=== PATIENT | male | born 1960 | race Two or more races ===

== ENCOUNTER → 2024-05-09 | Outpatient (CLI) | payer MEDICAID, SELFPAY ==
--- NOTE | 2024-05-09 09:24 | XR_ITS ---
Examination: PA lateral chest 2 views TECHNIQUE: Upright PA lateral chest 2 views Exam date and time: May 09, 2024 1017 hours INDICATIONS: Diagnosis coccidiomycosis coughing for months COMPARISON: April 09, 2023 FINDINGS: Normal heart size Lungs are clear. Mild hyperexpansion Moderate thoracic spondylosis IMPRESSION: Mild hyperexpansion No pneumonia identified
== END | disposition home or self-care (01) ==
PROVIDERS: PCP Physician Assistant; Referring Provider Internal Medicine Rheumatology; Visit Provider Physician Assistant
DX: J98.4 Other disorders of lung (principal)
CPT/HCPCS: 71046

== ENCOUNTER 2024-11-22 09:50 | Day surgery (SDC) | payer MEDICARE, MEDICAID, SELFPAY ==
--- NOTE | 2024-11-21 07:00 | EKG_ITS ---
[facility] Test Date: 2024-11-21 Pat Name: PHILIP PALUMBO Department: Room: - Gender: Male Vocal Artist: [facility] : 1960 Requested By: Jeanne Nunes Order Number: [id number] Reading MD: Jeanne Nunes Measurements Intervals [place] Rate: 71 P: 41 LA: 156 QRS: -7 QRSD: 105 T: 49 QT: 354 QTc: 385 Interpretive Statements SINUS RHYTHM No previous ECG available for comparison /store/S0/[id number]/ecg/[id number].pdf
[2024-11-21 07:35] VITALS: BMI 23.8
[2024-11-21 07:44] VITALS: BMI 23.8
[2024-11-21 10:55] LABS: Basophils # (Auto) 0.1 Thou/mm3 (0.0-0.2); Basophils % (Auto) 1 % (0-2.5); Eosinophils # (Auto) 0.2 Thou/mm3 (0.0-0.5); Eosinophils % (Auto) 4 % (0-10); Hematocrit 44.9 % (41.0-53.0); Hemoglobin 15.4 g/dL (13.5-16.0); Immature Granulocytes % (Auto) 1 % (0-0); Immature Granulocytes Auto 0.03 Thou/mm3 (0.00-0.00); Lymphocytes # (Auto) 2.8 Thou/mm3 (1.0-4.8); Lymphocytes % (Auto) 44 % (10-50); Mean Corpuscular HGB Conc 34.3 g/dl (31.0-37.0); Mean Corpuscular Hemoglobin 30.7 pg (25.0-35.0); Mean Corpuscular Volume 90 fL (80-100); Monocytes # (Auto) 0.7 Thou/mm3 (0.0-0.8); Monocytes % (Auto) 12 % (0-12); Neutrophils # (Auto) 2.4 Thou/mm3 (1.8-7.7); Neutrophils % (Auto) 39 % (37-80); Nucleated Red Blood Cell % 0 /100 WBC (0); Platelet Count 265 Thou/mm3 (140-440); RDW Standard Deviation 42.8 fL (35.1-43.9); Red Blood Count 5.01 Miln/mm3 (4.50-5.90); White Blood Count 6.3 Thou/mm3 (3.8-10.6)
[2024-11-21 11:06] LABS: Alanine Aminotransferase 17 U/L (10-49); Albumin, Serum 4.3 gm/dL (3.4-4.8); Albumin/Globulin Ratio 1.5 (1.2-2.2); Alkaline Phosphatase 84 U/L (46-116); Anion Gap 8 (7-16); Aspartate Amino Transferase 21 U/L (0-34); BUN/Creatinine Ratio 16 Ratio (12-20); Bilirubin,Total 0.5 mg/dL (0.3-1.2); Blood Urea Nitrogen 14 mg/dL (9-23); Calcium 9.2 mg/dL (8.3-10.6); Calcium (Corrected) 9.2 mg/dL (8.5-10.1); Carbon Dioxide 27.1 mMol/L (20.0-31.0); Chloride 106 mMol/L (98-107); Creatinine (Component) 0.9 mg/dL (0.6-1.3); Estimated Creatinine Clearance 73.8 mL/min (>60); Globulin 2.8 gm/dL (2.3-3.5); Glucose 110 mg/dL (74-106); Osmolality,Calculated 282 (275-295); Potassium 4.1 mMol/L (3.4-5.1); Sodium 141 mMol/L (136-145); Total Protein 7.1 gm/dL (5.7-8.2); eGFR > 60 See Note
--- NOTE | 2024-11-21 14:20 | SUR.PREOP ---
Pt notified to come in tomorrow at 1130.
[2024-11-22] VITALS (12 sets, daily range): BP systolic 113–153; BP diastolic 70–82; PULSE 54–77; RESP 12–20; TEMP 36.1–36.7; O2SAT 94–98; BMI 24.3
[2024-11-22] MEDS: RINGERS LACTATED 1000 ML 1,000 ML 20 ML IV (10:40)
--- NOTE | 2024-11-22 12:27 | SUR.PHASEI ---
pt received from OR in recovery bay 1. pt obtunded, breathing unlabored on oxymask 8l, oral airway in place. v/s stable. pt dressing to left lower abd cdi. report received from Dr. Samuels and Sana Velázquez.
--- NOTE | 2024-11-22 12:30 | PD.SUROPNT ---
Date of Procedure 11/22/24 Pre Op Diagnosis Incarcerated left femoral hernia Post Op Diagnosis Incarcerated recurrent left inguinal hernia Procedure Repair of incarcerated recurrent left inguinal hernia with mesh plug Findings Patient was noted to have direct, recurrent and incarcerated left inguinal hernia Procedure Description Patient presents operating room and spine position. After administration of general endotracheal anesthesia, patient's left groin was shaved and prepped and draped in standard surgical manner. After administration of local anesthesia an approximately 4 cm incision was made in left groin inferior to his previous inguinal hernia repair. Dissection was deepened into soft tissue and Shey's fascia was divided. Patient was noted to have scarring from previous operation. The external oblique aponeurosis was cleared and the shelving edge was clearly demonstrated. Patient did not have evidence of femoral hernia at this time. Instead he was noted to have bulging through the external ring. The external oblique aponeurosis was opened, once again patient was noted to have significant scarring from previous operation. He was noted to have a direct hernia sac. The sac was circumferentially dissected out surrounding tissue and the spermatic cord structures. The sac was opened and contents were incarcerated omentum were reduced. A mesh plug was placed through the defect and the plug was circumferentially. The defect was closed over the mesh plug with interrupted sutures using 2-0 Prolene. The external oblique aponeurosis was closed with running suture using 2-0 Vicryl. Hemostasis was adequate and satisfactory. The wound was washed and irrigated. Shey's fascia reapproximated with interrupted sutures using 2-0 Vicryl and the incision was closed with 4 Monocryl in subcuticular fashion. Dermabond and pressure dressings applied. Patient tolerated procedure well. He was extubated, breathing spontaneously and without difficulty and was transferred to postanesthesia care in stable condition. Instruments, needles and sponge counts were reported to be correct x 2. Anesthesia GETA and local Pathology / specimen Other (Hernia sac) Estimated Blood Loss 10 Condition Stable Disposition PACU Surgeon Jeanne Nunes MD Surgical Staff Operation Date: 11/22/24 13:45 Case Staff Anesthesiologist: Francisco J Samuels RN First Assistant: Dalila Winston
--- NOTE | 2024-11-22 14:35 | SUR.PHASEI ---
pt able to tolerate oral fluids without difficulty swallowing or nausea/vomiting.
--- NOTE | 2024-11-22 14:37 | SUR.PHASEII ---
pt awake and alert, breathing unlabored on room air. v/s stable. pt dressing to lower left abd cdi. pt able to ambulate to wheelchair with steady gait. d/c instructions given with Tracy, all questions answered. pt d/c via wheelchair with all belongings.
== END 2024-11-22 14:37 | disposition home or self-care (01) ==
PROVIDERS: Anesthesiology; PCP Family Medicine; Referring Provider Surgery; Visit Provider Surgery
PROC: (CPT 49521; principal; 2024-11-22 13:30)
DX: K40.31 Unilateral inguinal hernia, with obstruction, without gangrene, recurrent (principal); Z01.810 Encounter for preprocedural cardiovascular examination
CPT/HCPCS: 49521; 36415; 80053; 85025; 93005; A4217; A4649; C1781; J0690; J1100; J1885; J2250; J2405; J2704; J3010; J3490; J7120